=== PATIENT | female | born 1940 | race Caucasian/White ===

== ENCOUNTER 2018-06-18 08:42 | Inpatient (IN) ==
[2018-06-18] MEDS ORDERED: ONDANSETRON 4 MG/2 ML VIAL IVP ONE (09:06)
[2018-06-18] MEDS ORDERED: Sodium Chloride 0.9% 1,000 ML PRIMARY IV ONE ×2 (09:06→10:37)
--- NOTE | 2018-06-18 09:09 | PDOC ---
GI Bleed/Rectal Complaint HPI - General Chief Complaint: GI Bleed / Rectal Pain Stated Complaint: GI Bleed Date Seen by Provider: 06/18/18 Time Seen by Provider: 08:45 Source: POSITIVE: Patient, Spouse Exam Limitations: POSITIVE: No limitations Nurse's Notes Reviewed & Considered: Yes - History of Present Illness Initial Comments: This is a very pleasant, well-developed, well-nourished, 78-year-old female, complaining of GI bleeding. Patient had an episode earlier this last week on Monday with epigastric pain that resolved. This occurred while she was on vacation in [facility]. Upon return home last night she had an episode of black tarry stools and syncope. She had 2 episodes of syncope and increased abdominal pain. She denies any fever chills or sweats, no nausea or vomiting, no headache, no sore throat, no chest pain or shortness of breath. Patient does have atrial fibrillation and is on Eliquis. Body Location Affected: REPORTS: Abdomen Timing: REPORTS: Unknown Duration: Unknown Severity: Severe Quality: REPORTS: Cramping Context: REPORTS: None Associated Symptoms: REPORTS: Black Stools, Diarrhea, Diffuse (Diffuse abdominal discomfort), Fainting, Light Headedness - Patient Allergies Allergies/Adverse Reactions: Allergies 3 Allergy/AdvReac Type Severity Reaction Status Date / Time No Known Allergies Allergy Verified 06/18/18 09:59 ROS - Limitations ROS Limitations: No Limitations Constitution: REPORTS: Chills Cardiovascular: REPORTS: Denies Cardiac Symptoms Respiratory: REPORTS: Denies Resp Symptoms Neurological: REPORTS: Fainting Gastrointestinal: REPORTS: Diarrhea, Black Stools Endocrine: REPORTS: Denies Symptoms Musculoskeletal: REPORTS: Denies MS Symptoms Genitourinary: REPORTS: Denies Symptoms Eyes: REPORTS: Denies Symptoms ENT: REPORTS: Denies Symptoms Skin: REPORTS: Denies Skin Symptoms Lympathic: REPORTS: Denies Lympathic Symptoms Immunologic: POSITIVE: Denies Symptoms Psychiatric: POSITIVE: Denies Psych Symptoms GI Bleed / Rectal Complaint PE - General Appearance General Appearance: POSITIVE: Alert, Cooperative, No Acute Distress, No Evidence of Trauma - HEENT HEENT: POSITIVE: Head Inspection Nml, Eyes Inspection Nml, Ears Inspection Nml, Nose Inspection Nml, Oral/Dental Inspect. Nml, Pharynx Inspect. Nml, PERRL, EOMI - Neck Neck: POSITIVE: Normal Inspection, No Apparent Injury - Respiratory Respiratory: POSITIVE: No Respiratory Distress, Breath Sounds Normal, Chest Non- Tender - Cardiovascular Cardiovascular: POSITIVE: Heart Sounds Normal, Strong Pulses, Tachycardia Peripheral Pulses: Radial (L): 4+ - Abdomen Abdomen: Soft: (All Quadrants), Normal Bowel Sounds: (All Quadrants), Denies Tenderness: (All Quadrants), No Splenomegaly: (All Quadrants), No Hepatomegaly: (All Quadrants), No Guarding: (All Quadrants), No Rebound: (All Quadrants), No Palpable Pulse: (All Quadrants), No Palpabale Mass: (All Quadrants), No Distention: (All Quadrants), No Rigidity: (All Quadrants) - Skin Skin: POSITIVE: Color Normal, No Rash, Warm, Dry - Extremities Extremity: Non-Tender: (All Extremities), Normal ROM: (All Extremities), Normal Inspection: (All Extremities), Pelvis Stable: (All Extremities) - Neurological / Psychological Neurological: POSITIVE: Affect Apporpriate, Oriented X3, Motor Normal, Sensation Normal GI Bleed / Rectal Progress - Results Reviewed by me Lab Results:: Laboratory Results 3 06/18/18 06/18/18 06/18/18 09:10 09:10 09:10 WBC 11.27 H RBC 3.69 L Hgb 11.6 L Hct 34.4 L MCV 93.2 MCH 31.4 H MCHC 33.7 RDW Std Deviation 42.1 RDW Coeff of Santy 12.8 Plt Count 259 MPV 10.2 Immature Gran % (Auto) 0.4 Neut % (Auto) 83.3 H Lymph % (Auto) 12.2 Kerr % (Auto) 3.8 L Eos % (Auto) 0.1 Baso % (Auto) 0.2 Immature Gran # (Auto) 0.04 Neut # (Auto) 9.40 Lymph # (Auto) 1.37 Kerr # (Auto) 0.43 Eos # (Auto) 0.01 Baso # (Auto) 0.02 WBC Morphology Comment Normal morphology Plt Morphology Comment Normal morphology RBC Morph Comment Normal morphology PT 10.6 INR 1.03 Sodium 139 Potassium 4.2 Chloride 111 Carbon Dioxide 22 L Anion Gap 6 BUN 48 H Creatinine 0.7 BUN/Creatinine Ratio 68.57 H Glucose 156 H Calculated Osmolality 303.0 H Calcium 9.7 Magnesium 2.0 Total Bilirubin 0.2 L AST 16 ALT 28 Alkaline Phosphatase 68 CK-MB (CK-2) Troponin I Handheld C-Reactive Protein < 0.5 Total Protein 5.8 L Albumin 3.7 Globulin 2.1 L Albumin/Globulin Ratio 1.70 Amylase 52 Lipase 93 Blood Type Antibody Screen 3 06/18/18 06/18/18 06/18/18 09:10 09:10 09:27 WBC RBC Hgb Hct MCV MCH MCHC RDW Std Deviation RDW Coeff of Santy Plt Count MPV Immature Gran % (Auto) Neut % (Auto) Lymph % (Auto) Kerr % (Auto) Eos % (Auto) Baso % (Auto) Immature Gran # (Auto) Neut # (Auto) Lymph # (Auto) Kerr # (Auto) Eos # (Auto) Baso # (Auto) WBC Morphology Comment Plt Morphology Comment RBC Morph Comment PT INR Sodium Potassium Chloride Carbon Dioxide Anion Gap BUN Creatinine BUN/Creatinine Ratio Glucose Calculated Osmolality Calcium Magnesium Total Bilirubin AST ALT Alkaline Phosphatase CK-MB (CK-2) 0.65 Troponin I Handheld 0.010 C-Reactive Protein Total Protein Albumin Globulin Albumin/Globulin Ratio Amylase Lipase Blood Type O POSITIVE Antibody Screen Negative CBC and BMP: 06/18/18 09:10 06/18/18 09:10 EKG Interpreted/Reviewed By Me:: Yes (sinus rhythm with a rate of 90 beats a minute and no ST elevations noted.) EKG Interpretation:: POSITIVE: Normal Sinus Rhythm, Normal Rate - Patient's Progress Pain Medication Addressed: POSITIVE: Not Applicable Re-Examine Time:: 11:44 Status: POSITIVE: Improved - Consult Consult (If Yes, Name of Consulting MD & Time Called): Yes (Dr. Tejada, Dr. Crawley 1140hrs) Consulting MD will see pt:: POSITIVE: [facility] Admit Counseled: POSITIVE: Patient, Family, RE: Lab Results, RE: Radiology Results, RE : DX, RE: Need for F/U Patient Care Time - Estimated PCT Patient Care Time (In Minutes): 60 Vital Signs - Recent Vital Signs Vital Signs: Vital Signs (Last 8 hours) Temp Pulse Pulse Resp BP Pulse Ox 06/18/18 10:08 97.7 F 101 H 101 H 18 110/88 97 06/18/18 08:45 97.7 F - VS Reviewed Vital Signs Reviewed: Yes Discharge Clinical Impression: Gastrointestinal hemorrhage Discharge Disposition: Admit to Inpatient Condition: Fair Follow Up With: NONE,NONE [Primary Care Provider] - Date Decision to Admit to Inpatient: 06/18/18 Time Decision to Admit to Inpatient: 11:47
[2018-06-18 09:12] LABS: BASOPHILS # (AUTO) 0.02 10*3/UL; BASOPHILS % (AUTO) 0.2 % (0-1); EOSINOPHILS # (AUTO) 0.01 10*3/UL; EOSINOPHILS % (AUTO) 0.1 % (0-8); Hematocrit [HCT] 34.4 % (37.0-47.0); Hemoglobin [HGB] 11.6 g/dL (12.0-16.0); LYMPHOCYTES # (AUTO) 1.37 10*3/uL; MEAN CORPUSCULAR HEMOGLOBIN 31.4 PG (27-31); MEAN CORPUSCULAR HGB CONC 33.7 g/dL (33-37); MEAN CORPUSCULAR VOLUME 93.2 FL (81-99); MEAN PLATELET VOLUME 10.2 FL (7.4-12.2); MONOCYTES # (AUTO) 0.43 10*3/UL (0.3-0.8); MONOCYTES % (AUTO) 3.8 % (5-15); NEUTROPHILS % (AUTO) 83.3 % (50-80); RED BLOOD COUNT 3.69 10^6/uL (4.20-5.40)
--- NOTE | 2018-06-18 09:19 | EKG ---
[address] [address] Measurements Intervals Proctor Rate: 90 P: 81 NC: 234 QRS: -19 QRSD: 80 T: 39 QT: 352 QTc: 400 Interpretive Statements SINUS RHYTHM WITH FIRST DEGREE AV BLOCK LOW QRS VOLTAGE IN PRECORDIAL LEADS [QRS DEFLECTION < 1.0 mV IN CHEST LEADS] NONSPECIFIC T-WAVE ABNORMALITY No previous ECG available for comparison Electronically Signed On 06-19-18 13:36:02 MDT by Edin Narayan MD [email or web address]
[2018-06-18 09:23] LABS: BLOOD UREA NITROGEN 48 mg/dL (7-22); BUN/CREATININE RATIO 68.57 (6-20); LIPASE 93 IU/L (23-300); PLATELET MORPHOLOGY COMMENT NORMAL MORPHOLOGY (NORM); RBC MORPHOLOGY COMMENT NORMAL MORPHOLOGY (NORM); SERUM ALBUMIN 3.7 g/dL (3.5-4.8); WBC MORPHOLOGY COMMENT NORMAL MORPHOLOGY (NORM)
--- NOTE | 2018-06-18 11:39 | DI ---
CT Abdomen/Pelvis W Contrast,06/18/2018 9:06 AM: Clinical History: GI bleed. Previous Exam: None at this facility. Findings: Multiple helically acquired CT images are obtained through the abdomen and pelvis following intraveno us administration of contrast. Oral negative contrast was also administered. The urinary bladder is u nremarkable. The uterus contains a large coarse calcification within the anterior myometrial fundus measuring 16 m m in diameter. The urinary bladder is unremarkable. The appendix is normal. The pancreas, spleen, liver, gallbladder and kidneys are unremarkable. There is no lymphadenopathy. Large and small bowel loops are unremarkable. There is mild diffuse osteopenia. There is loss of inte rvertebral disc height at the L5/S1 level with endplate osteophyte formation. There is also degenerative endplate changes noted at the L2/3 level. Impression: No acute intra-abdominal pathology. The source of GI bleed could not be identified on this study.
--- NOTE | 2018-06-18 12:22 | PDOC ---
HPI - History of Present Illness Date of Service: 06/18/18 Time of Service: 13:00 Chief Complaint: Black stool today with syncope History of Present Illness: This is a 78 years old female with medical history significant for history of paroxysmal atrial fibrillation on anticoagulation with eliquis, history of gastric ulcer before with no bleeding who presented to the hospital with history of passing melenic stool this morning and syncope. She said the last 3 days she's been having an upset stomach she tried some Tums which seemed to help. The pain was not severe but comes and goes, today she did not have pain but she woke up this morning to go to the bathroom and after a normal bowel movement she went back to her bed and she passed out. The said she passed out for a few seconds and then she recovered and she went back again to the restroom and had another bowel movement which she described as black stool diarrhea. She was feeling dizzy went back to bed and had another bowel movement. And this time they called the medics brought her to the ER. She had a positive guaiac stool. CT of the abdomen was negative she was given fluids and admitted. She is denying abdominal pain currently. No nausea or vomiting. She feels better compared to when she came in. Past Medical History Medical History: 1. History of atrial fibrillation paroxysmal diagnosed 2 years ago on anticoagulation with eliquis. 2. History of gastric ulcer more than 20 years ago diagnosed with an upper GI. 3. Hypercholesterolemia. 4. Hypertension Surgical History: 1. History of schwannoma surgery. 2. History of uterine ablation. 3. History of fractured femur that needed surgery Family History: Reviewed an Not Pertinent Past Social History: Does not smoke, patient drank no drugs. Lives in [place] with her . They were traveling and now heading home Tobacco Use: Never Smoker Do you dip or chew tobacco: No In the Past 12 Months, Have Used or Abuse Any of the Following Substance: None Alcohol Use: Occasionally Medication / Allergies Allergies/Adverse Reactions: Allergies 3 Allergy/AdvReac Type Severity Reaction Status Date / Time No Known Allergies Allergy Verified 06/18/18 09:59 Review of Systems - Review of Systems All Systems: Reviewed & No Additional Complaints Except as Stated Exam - Vitals Vital Signs: Vital Signs Temperature 97.7 F Temperature Source Temporal Artery Scan Pulse Rate [Pulse Oximeter 101 Bilateral Radial] Pulse Rate 101 Respiratory Rate 18 Blood Pressure [Left Arm] 110/88 Pulse Ox 97 Oxygen Delivery Method Room Air Height 5 ft 5 in Weight 135 lb - General General Appearance: No Acute Distress, Cooperative - Head Head Exam: Normal Inspection - Eye Eye Exam: POSITIVE: Normal Appearance - ENT ENT Exam: POSITIVE: Normal Exam - Neck Neck Exam: Normal Inspection - Respiratory Respiratory Exam: POSITIVE: Clear to Auscultation - Bilaterally - Cardiovascular Cardiovascular Exam: POSITIVE: RRR - GI/Abdominal GI/Abdominal Exam: POSITIVE: Normal Bowel Sounds, Non Tender, Non Distended, Soft, No Organomegaly - Rectal Rectal Exam: POSITIVE: Deferred - External Exam: POSITIVE: Deferred Exam: POSITIVE: Deferred - Extremities Extremities Exam: POSITIVE: Normal Inspection - Back Back Exam: POSITIVE: Normal Inspection - Neurological Neurological Exam: POSITIVE: Alert, Oriented x 3, CN II-XII Intact, No Facial Droop, Speech Intact / Clear, Moves All Extremities Equally - Psychiatric Psychiatric Exam: POSITIVE: Normal Affect - Integumentary Integumentary Exam: POSITIVE: Pallor Results - Labs CBC and BMP: 06/18/18 09:10 06/18/18 09:10 - EKG Data -: EKG Interpreted by Me Rate: Normal EKG Shows Normal: Sinus Rhythm - EKG Data EKG Interpretation: Other (EKG showed sinus rhythm with first-degree AV block) - Imaging Status: Report Reviewed by Me (CT abdoemn No acute intra-abdominal pathology. The source of GI bleed could not be identified on this study.) Assessment and Plan - Patient Problems (1) Gastrointestinal hemorrhage Current Visit: Yes Status: Acute Comment: Looks like secondary to an upper source. Will put her on Protonix. Did speak with Dr. Tejada he has a plan for scoping her tomorrow. We'll hold eliquis. Code(s): K92.2 - Gastrointestinal hemorrhage, unspecified (2) Paroxysmal A-fib Current Visit: Yes Status: Acute Comment: We'll hold off on her eliquis and Cardizem for now. Code(s): I48.0 - Paroxysmal atrial fibrillation (3) Hypertension Current Visit: Yes Status: Acute Comment: Hold diltiazem for now Code(s): I10 - Essential (primary) hypertension
[2018-06-18] MEDS ORDERED: PANTOPRAZOLE IV 40 MG VIAL IVP ONE (12:56)
[2018-06-18] MEDS ORDERED: ONDANSETRON 4 MG/2 ML VIAL IVP PRN (13:07)
[2018-06-18] MEDS ORDERED: LIDOCAINE W/ SODIUM BICARB 0.5 ML SYR SUBD PRN (13:07)
[2018-06-18] MEDS ORDERED: ACETAMINOPHEN 325 MG TABLET PO PRN (13:07)
[2018-06-18] MEDS ORDERED: CALCIUM CARBONATE 500 MG (TUMS) CHEWABLE TABLET PO PRN (13:07)
[2018-06-18] MEDS ORDERED: PANTOPRAZOLE IV 40 MG VIAL ONE (13:28)
[2018-06-18] MEDS: Lactated Ringers 1,000 ML PRIMARY IV SCH ×2 (13:52→23:44)
--- NOTE | 2018-06-18 14:11 | CONSULT ---
Consult Note - Consult Consult Date: 06/18/18 Reason for Consult: PreOp Consulation : General Surgery Requesting Physician: Dr. Crawley Primary Care Provider: NONE NONE - History of Present Illness History of Present Illness: 78-year-old female who 3 days ago have epigastric abdominal pain. This pain has resolved. Patient started having black tarry stools. She 5 lightheaded and possibly passed out. She came in emergency department and is found to have a hemoglobin 11.3. She is but hemodynamically stable. Since arriving to the emergency department she says she's pass gas multiple times down has not had any bloody stools. Patient is on Eliquis for atrial fibrillation (has not taken any today took last dose last night). Review of Systems - Review of Systems All Systems: Reviewed & No Additional Complaints Except as Stated Past Medical History Medical History: 1. History of atrial fibrillation paroxysmal diagnosed 2 years ago on anticoagulation with eliquis. 2. History of gastric ulcer more than 20 years ago diagnosed with an upper GI. 3. Hypercholesterolemia. 4. Hypertension Surgical History: 1. History of schwannoma surgery. 2. History of uterine ablation. 3. History of fractured femur that needed surgery Family History: Reviewed an Not Pertinent Past Social History: Does not smoke, patient drank no drugs. Lives in [place] with her . They were traveling and now heading home Tobacco Use: Never Smoker Do you dip or chew tobacco: No In the Past 12 Months, Have Used or Abuse Any of the Following Substance: None Alcohol Use: Occasionally Medication / Allergies Allergies/Adverse Reactions: Allergies 3 Allergy/AdvReac Type Severity Reaction Status Date / Time No Known Allergies Allergy Verified 06/18/18 09:59 Results - Labs CBC and BMP: 06/18/18 09:10 06/18/18 09:10 Exam - Vitals Vital Signs: Vital Signs Temperature 97.7 F Temperature Source Temporal Artery Scan Pulse Rate [Telemetry] 93 Pulse Rate [Apical] 103 Pulse Rate [Pulse Oximeter 101 Bilateral Radial] Pulse Rate 101 Respiratory Rate 20 Blood Pressure [Right Arm] 117/69 Blood Pressure [Left Arm] 110/88 Pulse Ox 99 Oxygen Delivery Method Room Air Height 5 ft 5 in Weight 144 lb 14.4 oz - General General Appearance: No Acute Distress, Cooperative - GI/Abdominal GI/Abdominal Exam: POSITIVE: Normal Bowel Sounds, Non Tender, Non Distended, Soft Assessment and Plan - Patient Problems (1) Gastrointestinal hemorrhage Current Visit: Yes Status: Acute Code(s): K92.2 - Gastrointestinal hemorrhage, unspecified - Assessment / Plan Additional Assessment/Plan Details: Given the fact of the patient's BUN is elevated patient describes the stools as black tarry foul-smelling I think she has an upper GI bleed. Since she is on Eliquis we need to have this off 24 hours before doing an endoscopy. Would recommend the patient have an EGD. The risk and potential complications of the procedure were discussed with the patient.. They understood this. Also discussed alternatives diagnostic and treatment options. Will get the EGD set up at the first available date. CPT 77513
[2018-06-18 15:09] LABS: Hematocrit [HCT] 27.6 % (37.0-47.0); Hemoglobin [HGB] 9.2 g/dL (12.0-16.0)
[2018-06-18] MEDS ORDERED: Sodium Chloride 0.9% 500 ML PRIMARY IV ONE (16:30)
[2018-06-18] MEDS: ESCITALOPRAM 10 MG TABLET PO SCH ×2 (20:05→21:52)
[2018-06-18] MEDS: LORazepam 1 MG TABLET PO PRN (20:12)
[2018-06-18] MEDS ORDERED: traZODone Tab 50 MG TAB PO SCH (21:00)
[2018-06-18] MEDS ORDERED: ATORVASTATIN 20 MG TABLET PO SCH (21:00)
[2018-06-18 22:49] LABS: Hematocrit [HCT] 27.7 % (37.0-47.0); Hemoglobin [HGB] 9.3 g/dL (12.0-16.0)
[2018-06-19] MEDS: LORazepam 1 MG TABLET PO PRN (03:53)
[2018-06-19 06:39] LABS: BASOPHILS # (AUTO) 0.02 10*3/UL; BASOPHILS % (AUTO) 0.4 % (0-1); EOSINOPHILS # (AUTO) 0.05 10*3/UL; Hematocrit [HCT] 27.7 % (37.0-47.0); LYMPHOCYTES # (AUTO) 1.25 10*3/uL; MEAN CORPUSCULAR HEMOGLOBIN 30.3 PG (27-31); MEAN CORPUSCULAR HGB CONC 32.5 g/dL (33-37); MEAN CORPUSCULAR VOLUME 93.3 FL (81-99); MEAN PLATELET VOLUME 10.2 FL (7.4-12.2); MONOCYTES # (AUTO) 0.38 10*3/UL (0.3-0.8); MONOCYTES % (AUTO) 7.4 % (5-15); NEUTROPHILS # (AUTO) 3.45 10*3/UL; NEUTROPHILS % (AUTO) 66.6 % (50-80); RED BLOOD COUNT 2.97 10^6/uL (4.20-5.40)
[2018-06-19] MEDS: Lactated Ringers 1,000 ML PRIMARY IV SCH (06:47)
[2018-06-19 06:54] LABS: PLATELET MORPHOLOGY COMMENT NORMAL MORPHOLOGY (NORM); RBC MORPHOLOGY COMMENT NORMAL MORPHOLOGY (NORM); WBC MORPHOLOGY COMMENT NORMAL MORPHOLOGY (NORM)
[2018-06-19 07:26] LABS: BLOOD UREA NITROGEN 15 mg/dL (7-22); BUN/CREATININE RATIO 21.42 (6-20)
[2018-06-19] MEDS ORDERED: BuPROPion SR Tab 150 MG TAB PO SCH (09:00)
[2018-06-19] MEDS ORDERED: ESCITALOPRAM 10 MG TABLET PO SCH (09:00)
[2018-06-19] MEDS: PANTOPRAZOLE 40 MG TABLET PO SCH ×2 (09:40→10:27)
--- NOTE | 2018-06-19 10:08 | DCSUMMARY ---
Hospitalization Summary Admit Date: 06/18/2018 Discharge Date: 06/19/18 Hospital Course: Discharge diagnoses 1. GI bleed likely an upper source for the bleed 2. History of paroxysmal atrial fibrillation 3. History of hypertension 4. History of gastric ulcer many years ago 5. History of hypercholesterolemia Hospital course This is a 78 years old female with medical history significant for history of proximal atrial fibrillation on anticoagulation with eliquis, history of gastric ulcer before with no bleeding who presented to the hospital with history of passing malenic stool the morning of admission and syncope. She said the last 3 days she's been having an upset stomach she tried some Tums which seemed to help. The pain was not severe but comes and goes, on the day of admission she did not have pain but she woke up in the morning to go to the bathroom and after a normal bowel movement when she went back to her bed she passed out. The said she passed out for a few seconds and then she recovered and she went back again to the restroom and had another bowel movement which she described as black stool with diarrhea. She was feeling dizzy when she went back to the bed and had another bowel movement and this time they called the medics and brought her to the ER. She had a positive guaiac stool, CT of the abdomen was negative she was given fluids and admitted. She was denying abdominal pain when I saw her there was no nausea no vomiting. She felt better compared to when she came in. Patient was admitted to the hospital we put her on IV fluids and Protonix drip. She was seen by the surgeon Dr. Tejada there was plan for her to have EGD the next day. On the day of discharge patient decided to not to do the EGD here and have it done in [place] where she lives. She was asymptomatic. and felt a lot better. Her hemoglobin did drop on the night of admission and we gave her 1 unit of blood. she felt better there were no more bleeding no melenic stool. She requested to go home. We stopped her IV she tolerated diet , walked around remained asymptomatic so we discharged her home she will arrange an appointment with her primary and a supervisor paper machine. She was discharged on Protonix. Laboratory Results 06/18/18 06/18/18 06/18/18 Range/Units 09:27 10:00 15:01 WBC (4.8-10.8) 10^3/uL RBC (4.20-5.40) 10^6/uL Hgb 9.2 L (12.0-16.0) g/dL Hct 27.6 L (37.0-47.0) % MCV (81-99) FL MCH (27-31) PG MCHC (33-37) g/dL RDW Std Deviation (39-50) fL RDW Coeff of Santy (11.5-14.5) % Plt Count (140-350) 10*3/uL MPV (7.4-12.2) FL Immature Gran % (Auto) (0-5) % Neut % (Auto) (50-80) % Lymph % (Auto) (10-50) % Travis % (Auto) (5-15) % Eos % (Auto) (0-8) % Baso % (Auto) (0-1) % Immature Gran # (Auto) 10*3/UL Neut # (Auto) 10*3/UL Lymph # (Auto) 10*3/uL Travis # (Auto) (0.3-0.8) 10*3/UL Eos # (Auto) 10*3/UL Baso # (Auto) 10*3/UL WBC Morphology Comment (NORM) Plt Morphology Comment (NORM) RBC Morph Comment (NORM) Sodium (135-145) meq/L Potassium (3.8-5.2) meq/L Chloride (98-112) meq/L Carbon Dioxide (23-33) meq/L Anion Gap (5-20) BUN (7-22) mg/dL Creatinine (0.50-1.20) mg/dL BUN/Creatinine Ratio (6-20) Glucose (78-110) mg/dL Calculated Osmolality (267-292) mOsm/kg Calcium (8.7-10.7) mg/dL Blood Type O POSITIVE Antibody Screen Negative Crossmatch See Detail See Detail 06/18/18 06/19/18 06/19/18 Range/Units 22:45 04:45 04:45 WBC 5.17 (4.8-10.8) 10^3/uL RBC 2.97 L (4.20-5.40) 10^6/uL Hgb 9.3 L 9.0 L (12.0-16.0) g/dL Hct 27.7 L 27.7 L (37.0-47.0) % MCV 93.3 (81-99) FL MCH 30.3 (27-31) PG MCHC 32.5 L (33-37) g/dL RDW Std Deviation 45.7 (39-50) fL RDW Coeff of Santy 14.0 (11.5-14.5) % Plt Count 166 (140-350) 10*3/uL MPV 10.2 (7.4-12.2) FL Immature Gran % (Auto) 0.4 (0-5) % Neut % (Auto) 66.6 (50-80) % Lymph % (Auto) 24.2 (10-50) % Travis % (Auto) 7.4 (5-15) % Eos % (Auto) 1.0 (0-8) % Baso % (Auto) 0.4 (0-1) % Immature Gran # (Auto) 0.02 10*3/UL Neut # (Auto) 3.45 10*3/UL Lymph # (Auto) 1.25 10*3/uL Travis # (Auto) 0.38 (0.3-0.8) 10*3/UL Eos # (Auto) 0.05 10*3/UL Baso # (Auto) 0.02 10*3/UL WBC Morphology Comment Normal morphology (NORM) Plt Morphology Comment Normal morphology (NORM) RBC Morph Comment Normal morphology (NORM) Sodium 142 (135-145) meq/L Potassium 3.9 (3.8-5.2) meq/L Chloride 114 H (98-112) meq/L Carbon Dioxide 25 (23-33) meq/L Anion Gap 3 L (5-20) BUN 15 (7-22) mg/dL Creatinine 0.7 (0.50-1.20) mg/dL BUN/Creatinine Ratio 21.42 H (6-20) Glucose 102 (78-110) mg/dL Calculated Osmolality 294.0 H (267-292) mOsm/kg Calcium 8.2 L (8.7-10.7) mg/dL Blood Type Antibody Screen Crossmatch Discharge instruction Diet regular Activity as started Medications Current Medication(s) 3 Medication Instructions Recorded Confirmed Type Atorvastatin Calcium [Lipitor] 20 mg PO BEDTIME 06/18/18 06/18/18 History Bupropion HCl [Wellbutrin Sr] 100 mg PO DAILY 06/18/18 06/18/18 History Escitalopram Oxalate [Lexapro] 20 mg PO DAILY 06/18/18 06/18/18 History LORazepam Tab [Ativan Tab] 0.5 - 1 mg PO BID PRN 06/18/18 06/18/18 History traZODone Tab [Desyrel Tab] 50 mg PO HS 06/18/18 06/18/18 History Pantoprazole Sodium [Protonix] 40 mg PO BID #30 tab 06/19/18 Rx Follow-up with the PCP and supervisor paper machine Condition at discharge was stable for discharge Exam - Vitals Vital Signs: Vital Signs Temperature 98.2 F Temperature Source Oral Pulse Rate [Telemetry] 86 Pulse Rate [Apical] 103 Pulse Rate [Pulse Oximeter 80 Bilateral Radial] Pulse Rate 85 Respiratory Rate 17 Blood Pressure [Right Arm] 126/72 Blood Pressure [Left Arm] 110/88 Blood Pressure 110/51 Pulse Ox 93 Oxygen Delivery Method Room Air Height 5 ft 5 in Weight 143 lb 8 oz - General General Appearance: No Acute Distress, Cooperative - Head Head Exam: Normal Inspection - Eye Eye Exam: POSITIVE: Normal Appearance - ENT ENT Exam: POSITIVE: Normal Exam - Neck Neck Exam: Normal Inspection - Respiratory Respiratory Exam: POSITIVE: Clear to Auscultation - Bilaterally - Cardiovascular Cardiovascular Exam: POSITIVE: RRR - GI/Abdominal GI/Abdominal Exam: POSITIVE: Normal Bowel Sounds, Non Tender, Non Distended, Soft, No Organomegaly - Rectal Rectal Exam: POSITIVE: Deferred - External Exam: POSITIVE: Deferred Exam: POSITIVE: Deferred - Extremities Extremities Exam: POSITIVE: Normal Inspection - Back Back Exam: POSITIVE: Normal Inspection - Neurological Neurological Exam: POSITIVE: Alert, Oriented x 3, CN II-XII Intact, No Facial Droop, Speech Intact / Clear, Moves All Extremities Equally - Psychiatric Psychiatric Exam: POSITIVE: Normal Affect Patient Problems - Patient Problem List (1) Gastrointestinal hemorrhage Status: Acute Code(s): K92.2 - Gastrointestinal hemorrhage, unspecified Category: Medical (2) Paroxysmal A-fib Status: Acute Code(s): I48.0 - Paroxysmal atrial fibrillation Category: Medical (3) Hypertension Status: Acute Code(s): I10 - Essential (primary) hypertension Category: Medical
[2018-06-19 10:50] VITALS: BP 128/71; RESP 16; TEMP 98.9; O2SAT 96
== END 2018-06-19 10:43 | disposition home or self-care (01) | DRG 379 ==
LOC: ER 08:42 → ICU 12:19
PROVIDERS: ADMIT Internal Medicine; ATTEND Internal Medicine